=== PATIENT | female | born 1960 | race Caucasian/White ===

== ENCOUNTER → 2017-05-02 | Outpatient (CLI) | payer OTHER ==
[~2017-05-02] MED LIST: CYMBALTA PO; LISINOPRIL20 MG PO; LOMOTIL TABLET1 TAB PO; PERCOCET 10/31 UDTA1 PO; VITAMIN D310000 UNI1 PO
--- NOTE | ~2017-05-02 | NM65 ---
[facility] A Service of [facility] RADIOLOGY TEXT RESULTS PATIENT: LEDA JOHNSON LOCATION: [facility] : 56 UNIT #: [id number] AGE: [address]: Jin Parrish MD SEX: F ORDER DR: [id number] [facility] [address] [place], [place] [address] [id number] O MR#: [id number] Acc #: [id number] NAME: LEDA JOHNSON : 1960 SEX: F STUDY DATE/TIME: 05/02/2017 9:10 UNIT: [facility] ROOM: STUDY DESCRIPTION: [facility] Attending Physician: Jin Parrish M.D. Referring Physician: Jin Parrish M.D. Ordering Physician: Jin Parrish M.D. Primary Care Physician: Vanessa Reinoso M.D. MEDICAL IMAGING REPORT This report is preliminary unless electronic signature is present EXAM Parathyroid scan. INDICATIONS Hypercalcemia. Osteoporosis. Symptoms since December 2015. FINDINGS Patient was given 23.3 mCi of technetium-99m sestamibi, and [place] and anterior images were obtained of the neck at 15 minutes with similar set of 2 hour delayed images. There is normal uptake in the thyroid tissue on the 15 minute images and there is normal wash-out without evidence of residual nodule on the delayed images. The study does show the upper chest. IMPRESSION The study is normal. There is no evidence of parathyroid adenoma. Dictated by... Obed Doyle M.D. THIS IS AN ELECTRONICALLY VERIFIED REPORT Obed Doyle M.D. at 05/02/2017 3:38 PM JESICA/adonay TD: 05/02/2017 15:34 JOB #: [id number] MEDICAL IMAGING REPORT Page 1 of 1 COPY
== END | disposition home or self-care (01) ==
LOC: CNUC 08:22
DX: E83.52 Hypercalcemia (principal)
CPT/HCPCS: 78070; A9500

== ENCOUNTER → 2017-05-08 | Outpatient (CLI) | payer OTHER ==
[2017-05-08 10:53] LABS: URINE CREATININE 40.2 mg/dL
[2017-05-10 05:41] LABS: URINE CALCIUM 6.3 mg/dL (())
== END | disposition home or self-care (01) ==
LOC: CLAB 09:30
PROVIDERS: Specialist
DX: E83.52 Hypercalcemia (principal)
CPT/HCPCS: 82340; 82570